=== PATIENT | male | born 1955 | race Caucasian/White ===

== ENCOUNTER 2019-04-27 08:44 | Emergency (ER) | payer BC ==
[~2019-04-27] VITALS: Ht 175.3 cm; Wt 83.0 kg
[2019-04-27 08:51] VITALS: Ht 175.3 cm; Wt 83.0 kg
[2019-04-27 09:55] LABS: microscopic required? NO
[2019-04-27 10:18] LABS: UA SPECIFIC GRAVITY 1.015 (1.005-1.035); urine erythrocyte NEGATIVE (NEGATIVE)
[2019-04-27 10:20] LABS: BASOPHIL % 0.4 % (0-2); PLATELET COUNT 244 x10^3mcL (130-400); RED CELL DISTRIBUTION WIDTH 13.3 % (11.5-14.5)
[2019-04-27 10:24] LABS: CALCIUM 8.2 mg/dL (8.5-10.1); CARBON DIOXIDE 20.8 mmol/L (21-32); CHLORIDE SERUM 103 mmol/L (98-107); CREATININE SERUM 0.9 mg/dL (0.7-1.3); GFR1 > 60 mL/min; GLUCOSE SERUM 156 mg/dL (74-106); POTASSIUM SERUM 3.5 mmol/L (3.5-5.1); SODIUM SERUM 138 mmol/L (136-145)
[2019-04-27 10:28] LABS: ALBUMIN 3.5 g/dL (3.4-5.0); ALKALINE PHOSPHATASE 109 U/L (46-116); ALT/SGPT 35 U/L (16-63); AST/SGOT 22 U/L (15-37); LIPASE 91 IU/L (73-393); TOTAL PROTEIN, SERUM 6.7 g/dL (6.4-8.2)
[2019-04-27 11:55] VITALS: BP 140/79
== END 2019-04-27 11:55 | disposition home or self-care (01) ==
LOC: ED 08:44
PROVIDERS: Emergency Medicine
DX: K57.30 Diverticulosis of large intestine without perforation or abscess without bleeding (principal); J45.909 Unspecified asthma, uncomplicated
CPT/HCPCS: J1885; J2405; J7030